=== PATIENT | male | born 1970 | race Caucasian/White ===

== ENCOUNTER 2018-04-27 06:28 | Emergency (ER) | payer MEDICARE, OTHER ==
[2018-04-27] MEDS ORDERED: CHLORHEXIDINE GLUCONATE 4 % 15 ML UD TOP ONE (06:31)
--- NOTE | 2018-04-27 07:00 | RAD ---
EXAM DESCRIPTION: Toes,Left CLINICAL HISTORY: 47 years Male, L great toe laceration COMPARISON: None. FINDINGS: Cortical irregularity of the base of the first distal phalanx suspicious for nondisplaced fracture. Correlate with point tenderness. Overlying soft tissue irregularity. Electronically signed by: Abhi Turpin MD 04/27/2018 6:56 AM [facility]
[2018-04-27] MEDS ORDERED: LIDOCAINE 1% 10 ML VIAL INJ ONE (07:09)
[2018-04-27] MEDS ORDERED: cefTRIAXone SODIUM 1 GM VIAL IM ONE (07:37)
[2018-04-27] MEDS ORDERED: SULFA/TRIMETH 800/160 (DS) TAB 1 EA TAB PO ONE (07:37)
[2018-04-27] MEDS ORDERED: LIDOCAINE 1% 2 ML VIAL INJ ONE (07:41)
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
[2018-04-27 08:35] VITALS: BP 133/97; TEMP 98; O2SAT 96
== END 2018-04-27 08:35 | disposition home or self-care (01) ==
LOC: ER 06:28
DX: S92.425B Nondisplaced fracture of distal phalanx of left great toe, initial encounter for open fracture (principal); F32.9 Major depressive disorder, single episode, unspecified; I69.398 Other sequelae of cerebral infarction; Z79.899 Other long term (current) drug therapy; Z87.891 Personal history of nicotine dependence; X58.XXXA Exposure to other specified factors, initial encounter; Y92.009 Unspecified place in unspecified non-institutional (private) residence as the place of occurrence of the external cause
CPT/HCPCS: 73660; J0696

== ENCOUNTER 2019-04-12 11:47 | Emergency (ER) | payer SELFPAY ==
[2019-04-12 12:14] VITALS: TEMP 98.5
[2019-04-12] MEDS ORDERED: ONDANSETRON ODT 8 MG TAB SL ONE (12:39)
[2019-04-12] MEDS ORDERED: fentaNYL CITRATE INJ 50 MCG/ML AMP IM ONE (12:39)
--- NOTE | 2019-04-12 12:53 | RAD ---
EXAM DESCRIPTION: Shoulder,Left 2 or More Views CLINICAL HISTORY: possible fx COMPARISON: None FINDINGS: Two x-ray views of the left shoulder were submitted. There is an acute mildly displaced fracture at the distal clavicle. There is no dislocation. There is no radiopaque foreign body material. IMPRESSION: Acute left distal clavicular fracture. Electronically signed by: Burak Grayson MD 04/12/2019 12:52 PM [facility]
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
[2019-04-12 13:49] VITALS: BP 107/73; O2SAT 93
== END 2019-04-12 13:51 | disposition home or self-care (01) ==
LOC: ER 11:47
DX: S42.032A Displaced fracture of lateral end of left clavicle, initial encounter for closed fracture (principal); S10.93XA Contusion of unspecified part of neck, initial encounter; I69.354 Hemiplegia and hemiparesis following cerebral infarction affecting left non-dominant side; Z87.891 Personal history of nicotine dependence; Z79.899 Other long term (current) drug therapy; V86.59XA Driver of other special all-terrain or other off-road motor vehicle injured in nontraffic accident, initial encounter; Y92.9 Unspecified place or not applicable
CPT/HCPCS: 73030; J3010